=== PATIENT | male | born 1960 | race Caucasian/White ===

== ENCOUNTER → 2017-09-22 | Outpatient (CLI) | payer MEDICARE, OTHER | END | disposition home or self-care (01) | LOC: RADPV 10:22 | PROVIDERS: ATTEND Internal Medicine Geriatric Medicine | DX: M16.11 Unilateral primary osteoarthritis, right hip (principal); M47.816 Spondylosis without myelopathy or radiculopathy, lumbar region; M41.86 Other forms of scoliosis, lumbar region | CPT/HCPCS: 72100; 72170 ==

== ENCOUNTER 2018-04-22 19:33 | Emergency (ER) | payer MEDICARE, OTHER ==
[~2018-04-22] VITALS: Ht 172.7 cm; Wt 73.5 kg
[2018-04-22] MEDS ORDERED: LORA0.5T2 PO (19:49)
[2018-04-22] MEDS ORDERED: TRAZ-219 PO (19:49)
[2018-04-22] MEDS ORDERED: RIZA10TA27 PO (19:49)
[2018-04-22] MEDS ORDERED: CIPR-278 PO (19:49)
[2018-04-22] MEDS ORDERED: GABA-531 PO (19:49)
[2018-04-22] MEDS ORDERED: NITR50 PO (19:49)
[2018-04-22] MEDS ORDERED: KETOROLAC TROMETHAMINE 60 MG/2 ML VIAL IM ONE (23:15)
[2018-04-23 01:13] VITALS: BP 132/78
== END 2018-04-23 01:25 | disposition home or self-care (01) ==
LOC: EMS 19:34
DX: S92.512A Displaced fracture of proximal phalanx of left lesser toe(s), initial encounter for closed fracture (principal); F41.9 Anxiety disorder, unspecified; F39 Unspecified mood [affective] disorder; F32.9 Major depressive disorder, single episode, unspecified; Z87.891 Personal history of nicotine dependence; W18.30XA Fall on same level, unspecified, initial encounter; Y93.89 Activity, other specified; Y92.89 Other specified places as the place of occurrence of the external cause; Y99.8 Other external cause status
CPT/HCPCS: 73503; 73562; 73630; 96372; 99284; J1885

== ENCOUNTER → 2019-02-07 | Outpatient (CLI) | payer MEDICARE, OTHER ==
[~2019-02-07] MED LIST: CIPR-278 PO; GABA-531 PO; LORA0.5T2 PO; NITR50 PO; RIZA10TA27 PO; TRAZ-252 PO
== END | disposition home or self-care (01) ==
LOC: RADPV 15:20
PROVIDERS: ATTEND Internal Medicine Geriatric Medicine
DX: M79.642 Pain in left hand (principal); M79.645 Pain in left finger(s)

== ENCOUNTER → 2019-04-20 | Outpatient (CLI) | payer MEDICARE, OTHER ==
[~2019-04-20] MED LIST changes: +IOVERSOL 350 MG/ML 150 ML VIAL ONE; +SODIUM CHLORIDE 0.9% 100 ML ONE
== END | disposition home or self-care (01) ==
LOC: RADMN 08:39
PROVIDERS: ATTEND Internal Medicine Geriatric Medicine
DX: K40.90 Unilateral inguinal hernia, without obstruction or gangrene, not specified as recurrent (principal); I71.4 Abdominal aortic aneurysm, without rupture; I70.0 Atherosclerosis of aorta; N40.0 Benign prostatic hyperplasia without lower urinary tract symptoms
CPT/HCPCS: 74178; J7050; Q9967

== ENCOUNTER → 2023-11-23 | Outpatient (CLI) | payer MEDICARE, OTHER ==
[~2023-11-23] MED LIST changes: +GABA-1181 PO; -GABA-531 PO; -IOVERSOL 350 MG/ML 150 ML VIAL ONE; +LORA-999 PO; -LORA0.5T2 PO; -NITR50 PO; +NITR50CA45 PO; -RIZA10TA27 PO; +RIZA10TA42 PO; -SODIUM CHLORIDE 0.9% 100 ML ONE
== END | disposition home or self-care (01) ==
LOC: RADMN 09:19
PROVIDERS: ATTEND Internal Medicine Geriatric Medicine
DX: M65.30 Trigger finger, unspecified finger (principal)
CPT/HCPCS: 73130-TC